=== PATIENT | male | born 1990 | race African-American/Black ===

== ENCOUNTER 2017-04-17 07:40 | Emergency (ER) | payer SELFPAY ==
[~2017-04-17] VITALS: Ht 185.4 cm; Wt 69.9 kg
[2017-04-17 07:45] VITALS: BP 144/67
--- NOTE | 2017-04-17 08:08 | PHYS DOC ---
Past Medical History Past Medical History: No Pertinent History Past Surgical History: Tonsillectomy, Other Additional Past Surgical Histo: adenoidectomy Additional Information: 4-6 cigarettes daily Alcohol Use: Occasionally Drug Use: Marijuana Adult General Chief Complaint Chief Complaint: FLU SYMPTOM HPI HPI Patient is a 26 year old male with no significant medical history who presents today complaining of a cough for 1 day, itchy throat and vomiting this morning. Patient also states he felt he could have diarrhea. He states he has not had any loose stools yet. Patient denies any fever. Review of Systems Review of Systems Constitutional: Denies fever or chills [] Eyes: Denies change in visual acuity, redness, or eye pain [] HENT: Reports itchy throat. Denies nasal congestion Respiratory: Reports cough denies shortness of breath [] Cardiovascular: No additional information not addressed in HPI [] GI: Denies abdominal pain, nausea, vomiting, bloody stools or diarrhea [] : Denies dysuria or hematuria [] Musculoskeletal: Denies back pain or joint pain [] Integument: Denies rash or skin lesions [] Neurologic: Denies headache, focal weakness or sensory changes [] All other systems were reviewed and found to be within normal limits, except as documented in this note. Current Medications Current Medications Current Medications Medications (Trade) Dose Ordered Sig/Jean Carlos Start Time Stop Time Status Last Admin Dose Admin Ondansetron HCl (Zofran Odt) 4 mg 1X ONCE 04/17/17 08:15 04/17/17 08:16 Allergies Allergies Allergies Coded Allergies Type Severity Reaction Last Updated Verified No Known Drug Allergies 04/17/17 No Physical Exam Physical Exam Constitutional: Well developed, well nourished, no acute distress, non-toxic appearance. [] HENT: Normocephalic, atraumatic, bilateral external ears normal, oropharynx moist, no oral exudates, nose normal. [] Eyes: PERRLA, EOMI, conjunctiva normal, no discharge. [] Neck: Normal range of motion, no tenderness, supple, no stridor. [] Cardiovascular:Heart rate regular rhythm, no murmur [] Lungs & Thorax: Bilateral breath sounds clear to auscultation [] Abdomen: Bowel sounds normal, soft, no tenderness, no masses, no pulsatile masses. [] Skin: Warm, dry, no erythema, no rash. [] Back: No tenderness, no CVA tenderness. [] Extremities: No tenderness, no cyanosis, no clubbing, ROM intact, no edema. [] Neurologic: Alert and oriented X 3, normal motor function, normal sensory function, no focal deficits noted. [] Psychologic: Affect normal, judgement normal, mood normal. [] Current Patient Data Vital Signs Vital Signs Date Time Temp Pulse Resp B/P (MAP) Pulse Ox O2 Delivery O2 Flow Rate FiO2 04/17/17 07:45 98.4 99 20 98 Room Air 98.4 EKG EKG [] Radiology/Procedures Radiology/Procedures [] Course & Med Decision Making Course & Med Decision Making Pertinent Labs and Imaging studies reviewed. (See chart for details) This is a 26-year-old male patient presenting to the ED today with symptoms consistent of a viral illness including cough, itchy throat and vomiting. Patient appears well. Discharged with Zofran and Tessalon Perles. Instructed to take Zyrtec for the itching throat. Recommended saltwater gargles. Recommended pushing fluids and maintaining good hand hygiene. Instructed to follow-up with the primary care doctor in one week and return to the ED if symptoms worsen. Dragon Disclaimer Dragon Disclaimer This electronic medical record was generated, in whole or in part, using a voice recognition dictation system. Departure Departure Impression: Primary Impression: Cough Additional Impression: Vomiting Disposition: 01 HOME, SELF-CARE Condition: STABLE Referrals: NON,STAFF (PCP) follow up with your doctor in one week Patient Instructions: Cough, Adult, [id number], Nausea and Vomiting, Easy-to- Read Additional Instructions: You were seen in the emergency room with symptoms consistent of a viral illness. Push fluids. Take Tylenol or Motrin for body aches for fever. Maintain very good hand hygiene. Take Zofran as needed for nausea vomiting. Take Tessalon Perles for the cough. Take Zyrtec to help with the itching throat. You can also use saltwater gargles. Follow-up with your doctor in 1-2 weeks. Come back to the ED symptoms worsen. Scripts Ondansetron (ZOFRAN ODT) 4 Mg Tab.rapdis 1 TAB SL Q8HRS, #15 TAB Prov: CODY BENAVIDES COMPREHENSIVE OPHTHALMOLOGIST 04/17/17 Benzonatate (TESSALON PERLE) 100 Mg Capsule 1 CAP PO TID, #30 CAP Prov: CODY BENAVIDES COMPREHENSIVE OPHTHALMOLOGIST 04/17/17 Problem Qualifiers Additional Impression: Vomiting Vomiting type: unspecified Vomiting Intractability: non-intractable Nausea presence: unspecified Qualified Codes: R11.10 - Vomiting, unspecified CODY BENAVIDES COMPREHENSIVE OPHTHALMOLOGIST Apr 17, 2017 08:08
[2017-04-17] MEDS ORDERED: BENZ100C PO (08:10)
[2017-04-17] MEDS ORDERED: ONDA4TAB10 SL (08:10)
[2017-04-17] MEDS ORDERED: ONDANSETRON ODT 4 MG TAB.RAPDIS. PO ONE (08:15)
== END 2017-04-17 08:21 | disposition home or self-care (01) ==
LOC: ER 07:40
DX: R11.10 Vomiting, unspecified (principal); R05 Cough; J39.2 Other diseases of pharynx; F17.210 Nicotine dependence, cigarettes, uncomplicated; F12.10 Cannabis abuse, uncomplicated
CPT/HCPCS: 99283; Q0162

== ENCOUNTER 2017-08-10 06:50 | Emergency (ER) | payer SELFPAY | END 2017-08-10 07:46 | disposition home or self-care (01) | LOC: ER 06:50 | DX: K64.0 First degree hemorrhoids (principal); F12.10 Cannabis abuse, uncomplicated; F17.210 Nicotine dependence, cigarettes, uncomplicated; Z90.89 Acquired absence of other organs | CPT/HCPCS: 99283 ==

== ENCOUNTER 2017-10-21 10:01 | Emergency (ER) | payer OTHER ==
[2017-10-21] MEDS: diphenhydrAMINE HCL 25 MG CAPSULE PO (11:04)
[2017-10-21] MEDS: FAMOTIDINE 20 MG TABLET. PO (11:05)
[2017-10-21] MEDS: DEXAMETHASONE SOD PHOS 20 MG/5 ML VIAL. IM (11:07)
== END 2017-10-21 11:27 | disposition home or self-care (01) ==
LOC: ER 11:27
DX: S00.262A Insect bite (nonvenomous) of left eyelid and periocular area, initial encounter (principal); S50.861A Insect bite (nonvenomous) of right forearm, initial encounter; S00.86XA Insect bite (nonvenomous) of other part of head, initial encounter; F12.10 Cannabis abuse, uncomplicated; W57.XXXA Bitten or stung by nonvenomous insect and other nonvenomous arthropods, initial encounter; Y93.89 Activity, other specified; Y99.8 Other external cause status; Y92.89 Other specified places as the place of occurrence of the external cause
CPT/HCPCS: 96372; 99283; J1100; Q0163

== ENCOUNTER 2018-11-01 14:45 | Emergency (ER) | payer SELFPAY ==
[~2018-11-01] VITALS: Ht 175.3 cm; Wt 69.9 kg
[~2018-11-01 14:45] MED LIST: BENZ100C PO; DIPH25CA58 PO; FAMO-63 PO; HYDR30CR61 TP; ONDA4TAB10 SL; POLY17PO29 PO; PRED50TA PO; WITC1MED18 TP
[2018-11-01 15:00] VITALS: BP 134/75
--- NOTE | 2018-11-01 15:10 | PHYS DOC ---
Past Medical History Past Medical History: No Pertinent History Past Surgical History: Tonsillectomy, Other Additional Past Surgical Histo: adenoidectomy Alcohol Use: Occasionally Drug Use: Marijuana Adult General Chief Complaint Chief Complaint: LACERATION/AVULSION HPI HPI Patient is a 28 year old female who presents with right elbow laceration that occurred a couple minutes prior to coming to the ED. Patient was cut by a piece of glass. Review of Systems Review of Systems Constitutional: Denies fever or chills [] Musculoskeletal: Denies back pain or joint pain [] Integument: Reports right elbow laceration Neurologic: Denies headache, focal weakness or sensory changes [] All other systems were reviewed and found to be within normal limits, except as documented in this note. Current Medications Current Medications Current Medications Medications (Trade) Dose Ordered Sig/Jean Carlos Start Time Stop Time Status Last Admin Dose Admin Diphtheria/ Tetanus/Acell Pertussis (Boostrix) 0.5 ml ONCE ONCE 11/01/18 15:15 11/01/18 15:16 Allergies Allergies Allergies Coded Allergies Type Severity Reaction Last Updated Verified No Known Drug Allergies 04/17/17 No Physical Exam Physical Exam Constitutional: Well developed, well nourished, no acute distress, non-toxic a ppearance. [] Skin: Right dorsal elbow with superficial laceration approximately 1 cm long, this no obvious tendon involvement. Patient able to flex and extend the right elbow with no difficulties. Adequate radial, medial, on a sensation to the right upper extremity. +2 right radial pulse. Cap refill less than 2 seconds the right fingers. Back: No tenderness, no CVA tenderness. [] Extremities: No tenderness, no cyanosis, no clubbing, ROM intact, no edema. [] Neurologic: Alert and oriented X 3, normal motor function, normal sensory function, no focal deficits noted. [] Psychologic: Affect normal, judgement normal, mood normal. [] Current Patient Data Vital Signs Vital Signs Date Time Temp Pulse Resp B/P (MAP) Pulse Ox O2 Delivery O2 Flow Rate FiO2 11/01/18 15:00 98.5 96 14 134/75 (94) 97 Room Air 98.5 EKG EKG [] Radiology/Procedures Radiology/Procedures [] Course & Med Decision Making Course & Med Decision Making Pertinent Labs and Imaging studies reviewed. (See chart for details) This is a 28-year-old male patient presented to the ED today with a superficial laceration to the right elbow which was closed with Dermabond and Steri-Strips. Tetanus updated. Wound care instructions and return precautions provided. Lukason Disclaimer Jorge Disclaimer This electronic medical record was generated, in whole or in part, using a voice recognition dictation system. Departure Departure Impression: Primary Impression: Laceration of right elbow Disposition: HOME, SELF-CARE Condition: STABLE Referrals: NO PCP (PCP) Follow-up with your doctor in 1-2 weeks as needed Patient Instructions: Laceration Care, Adult Additional Instructions: You have right elbow laceration which was closed with Dermabond. Keep the area clean and dry. You can shower and wash the area with normal saltwater. Keep the area clean and dry. Monitor the area for any signs of infection including but not limited to increased redness to the area, warmth to the area, yellow drainage from the area and return to the ED if they occur or see your own doctor. Problem Qualifiers Primary Impression: Laceration of right elbow Encounter type: initial encounter Qualified Codes: S51.011A - Laceration without foreign body of right elbow, initial encounter CODY BENAVIDES DEMURRAGE WORKER Nov 01, 2018 15:10
[2018-11-01] MEDS ORDERED: DIPHTH,PERTUSS(ACELL),TET TOX 0.5 ML DISP.SYRIN. VAX IM ONE (15:15)
== END 2018-11-01 15:23 | disposition home or self-care (01) ==
LOC: ER 14:45
DX: S51.011A Laceration without foreign body of right elbow, initial encounter (principal); W25.XXXA Contact with sharp glass, initial encounter; Y93.89 Activity, other specified; Y92.89 Other specified places as the place of occurrence of the external cause; Y99.8 Other external cause status
CPT/HCPCS: 12001; 90471; 90715; 99283-25

== ENCOUNTER 2021-06-03 13:55 | Emergency (ER) | payer SELFPAY ==
[~2021-06-03] VITALS: Ht 185.4 cm; Wt 70.4 kg
[2021-06-03 14:40] VITALS: BP 149/69
[2021-06-03] MEDS ORDERED: cefTRIAXone IM 500 MG VIAL. IM ONE (15:00)
[2021-06-03] MEDS ORDERED: DOXY100C3 PO (15:03)
--- NOTE | 2021-06-03 15:03 | PHYS DOC ---
Past Medical History Past Medical History: No Pertinent History Past Surgical History: Tonsillectomy, Other Additional Past Surgical Histo: adenoidectomy Smoking Status: Current Every Day Smoker Alcohol Use: Heavy Drug Use: Marijuana General Adult EDM: Chief Complaint: SEXUALLY TRANSMITTED DISEASE HPI: HPI: Patient is a 30 year old male without pertinent past medical history who presents with concerns for sexually transmitted infections. States that his girlfriend had recently tested positive for either chlamydia or gonorrhea. He was unsure which, so he was instructed to be checked out. Denies dysuria, urgency, frequency. No penile discharge. No genital rashes. She was treated with ceftriaxone and a 7-day course of doxycycline. Has been in a monogamous relationship for the past 3 months. Reports two sexual partners in the past year. Review of Systems: Review of Systems: Constitutional: Denies fever or chills. [] Eyes: Denies change in visual acuity. [] HENT: Denies nasal congestion or sore throat. [] Respiratory: Denies cough or shortness of breath. [] Cardiovascular: Denies chest pain or edema. [] GI: Denies abdominal pain, nausea, vomiting, bloody stools or diarrhea. [] : Denies dysuria. [] Musculoskeletal: Denies back pain or joint pain. [] Integument: Denies rash. [] Neurologic: Denies headache, focal weakness or sensory changes. [] Endocrine: Denies polyuria or polydipsia. [] Lymphatic: Denies swollen glands. [] Psychiatric: Denies depression or anxiety. [] Heart Score: C/O Chest Pain: No Allergies: Allergies: Allergies Coded Allergies Type Severity Reaction Last Updated Verified No Known Drug Allergies 04/17/17 No Physical Exam: PE: Constitutional: Well developed, well nourished, no acute distress, non-toxic appearance. [] Neck: Normal range of motion, no tenderness, supple, no stridor. [] Cardiovascular:Heart rate regular rhythm, no murmur [] Lungs & Thorax: Bilateral breath sounds clear to auscultation [] Abdomen: Bowel sounds normal, soft, no tenderness, no masses, no pulsatile masses. [] : No rashes or discharge. Skin: Warm, dry, no erythema, no rash. [] Back: No tenderness, no CVA tenderness. [] Extremities: No tenderness, no cyanosis, no clubbing, ROM intact, no edema. [] Neurologic: Alert and oriented X 3, normal motor function, normal sensory function, no focal deficits noted. [] EKG: EKG: [] Radiology/Procedures: Radiology/Procedures: [] Course & Med Decision Making: Course & Med Decision Making Pertinent Labs and Imaging studies reviewed. (See chart for details) Patient a 30-year-old male who reports that he was exposed to either gonorrhea or chlamydia from his girlfriend. He is asymptomatic. Will check UA, GC/Chlamydia. Will treat empirically given high risk exposure with IM CTX and oral doxycycline. Advised no sexual activity until he completes his abx course. Dragon Disclaimer: oBaz Disclaimer: This electronic medical record was generated, in whole or in part, using a voice recognition dictation system. Departure Departure Impression: Primary Impression: Screening for STD (sexually transmitted disease) Disposition: HOME / SELF CARE / HOMELESS Condition: STABLE Referrals: NO PCP (PCP) Patient Instructions: Sexually Transmitted Disease Additional Instructions: We are testing you for gonorrhea and chlamydia. We are also treating you with antibiotics. He received a shot of ceftriaxone which we will treat you for gonorrhea, and you will need to take a 7-day course of doxycycline to be treated for chlamydia. Please do not have sexual intercourse until you have completed your 7-day course of antibiotics. It can take several days before the results of your test are available. You should receive a call if they are positive. Scripts Doxycycline Hyclate (DOXYCYCLINE HYCLATE) 100 Mg Capsule 1 CAP PO BID for 7 Days, #14 CAP 0 Refills Prov: YA CAMEJO MD 06/03/21 YA CAMEJO MD Jun 03, 2021 15:03
[2021-06-03 15:13] LABS: BILIRUBIN,URINE NEGATIVE (NEG); CLARITY,URINE CLEAR; COLOR,URINE YELLOW; NITRITE,URINE NEGATIVE (NEG); PROTEIN,URINE NEGATIVE (NEG-TRACE); UROBILINOGEN,URINE 0.2 mg/dL (0.2 mg/dL)
[2021-06-03 15:42] LABS: HYALINE CASTS, URINE FEW /HPF
[2021-06-03 15:43] LABS: BACTERIA,URINE 0 /HPF (0-FEW); RBC,URINE OCC /HPF (0-2)
== END 2021-06-03 15:45 | disposition home or self-care (01) ==
LOC: ER 13:55
DX: Z20.2 Contact with and (suspected) exposure to infections with a predominantly sexual mode of transmission (principal); F17.200 Nicotine dependence, unspecified, uncomplicated; F10.20 Alcohol dependence, uncomplicated; Y90.9 Presence of alcohol in blood, level not specified
CPT/HCPCS: 81001; 87491; 87591; 96372; 99283; J0696